=== PATIENT | male | born 1960 | race Caucasian/White ===

== ENCOUNTER 2024-10-07 01:36 | Emergency (ER) | payer OTHER ==
[~2024-10-07] VITALS: Ht 167.6 cm; Wt 70.3 kg
[2024-10-07 04:01] LABS: BASOPHILS # (AUTO) 0.1 K/uL (0.0-0.2); BASOPHILS % (AUTO) 0.5 % (0.0-2.0); EOSINOPHILS # (AUTO) 0.1 K/uL (0.0-0.7); EOSINOPHILS % (AUTO) 0.7 % (0.0-6.0); HEMATOCRIT 45 % (39-51); HEMOGLOBIN 15.5 g/dL (13.5-17.5); LYMPHOCYTES % (AUTO) 8.5 % (20.0-44.0); MEAN CORPUSCULAR HEMOGLOBIN 31 PG (26.0-33.0); MEAN CORPUSCULAR HGB CONC 34 g/dl (31.0-36.0); MEAN CORPUSCULAR VOLUME 90 fL (80-96); MONOCYTES % (AUTO) 8.2 % (2.0-12.0); NEUTROPHILS % (AUTO) 82.1 % (43.0-81.0); PLATELET COUNT (AUTO) 133 K/uL (150-450); RED BLOOD CELL COUNT(AUTO) 5.02 MIL/uL (4.5-6.0); WHITE BLOOD COUNT (AUTO) 12.1 K/uL (4.3-11.0)
[2024-10-07 04:10] LABS: URIC ACID 5.6 mg/dL (2.6-7.2)
[2024-10-07 04:14] LABS: ALBUMIN 3.9 g/dL (3.4-5.0); BILIRUBIN,TOTAL 0.3 mg/dL (0.2-1.0); CALCIUM, SERUM 9.3 mg/dL (8.5-10.1); POTASSIUM 4.2 mmol/L (3.5-5.1); TOTAL PROTEIN, SERUM 7.3 g/dL (6.4-8.2)
[2024-10-07 04:20] LABS: ERYTHROCYTE SEDIMENTATION RATE 2 MM/HR (0-20)
[2024-10-07] MEDS ORDERED: ACETAMINOPHEN 325 MG TABLET ONE (04:22)
[2024-10-07] MEDS ORDERED: LIDOCAINE HCL/MPF 1% 30 ML VIAL IJ ONE (04:22)
[2024-10-07] MEDS: ACETAMINOPHEN 325 MG TABLET PO ONE (04:26)
[2024-10-07] MEDS: LIDOCAINE /MPF 1% VIAL 5 ML VIAL IJ ONE (04:42)
[2024-10-07] MEDS ORDERED: HYDROCODONE/APAP 10/325MG TABLET ONE (05:12)
[2024-10-07] MEDS: HYDROCODONE/APAP 10/325MG TABLET PO ONE (05:16)
[2024-10-07] MEDS ORDERED: VANCOMYCIN 1 GM /D5W 250 ML PB IV ONE (05:18)
[2024-10-07] MEDS ORDERED: VANCOMYCIN 500 MG VIAL ONE (05:18)
[2024-10-07] MEDS: VANCOMYCIN HCL 1.25 GM in IV D5W 260 ML IV ONE (05:21)
[2024-10-07] MEDS ORDERED: CLIN150C16 PO (05:55)
[2024-10-07 06:28] VITALS: BP 124/73; TEMP 98.2; O2SAT 98
== END 2024-10-07 06:28 | disposition home or self-care (01) ==
LOC: ER 01:48
DX: M71.9 Bursopathy, unspecified (principal); E78.5 Hyperlipidemia, unspecified; Z95.2 Presence of prosthetic heart valve; Z60.2 Problems related to living alone
CPT/HCPCS: 99284; 20610; 96365; 96366; 73564; 85025; 87040; 85652; 84550; 36415; 80053; J3370 ×2; J3490; A4223; J7060